=== PATIENT | female | born 1980 | race Hispanic/Latino ===

== ENCOUNTER → 2019-10-15 | Outpatient (CLI) | payer BC ==
[2019-10-15 08:49] LABS: BASOPHILS % 0.3 % (0.0-1.0); EOSINOPHILS # (AUTO) 0.1 (0.0-0.4); EOSINOPHILS % 1.9 % (0.0-6.0); HEMATOCRIT 37.7 % (34.2-44.1); HEMOGLOBIN 12.6 g/dL (12.0-16.0); LYMPHOCYTES # (AUTO) 2.2 (1.0-3.2); LYMPHOCYTES % 36.6 % (18.0-39.1); MEAN CORPUSCULAR HEMOGLOBIN 29.6 pg (28-32); MEAN CORPUSCULAR HGB CONC 33.4 g/dL (31-35); MEAN CORPUSCULAR VOLUME 88.7 fL (81-99); MONOCYTES # (AUTO) 0.3 (0.2-0.8); MONOCYTES % 4.9 % (4.4-11.3); NEUTROPHILS # (AUTO) 3.3 (2.1-6.9); PLATELET COUNT 260 x10e3/uL (140-360); RED BLOOD COUNT 4.25 x10e6/uL (3.6-5.1); RED CELL DISTRIBUTION WIDTH 12.5 % (11.7-14.4)
[2019-10-15 09:15] LABS: ALANINE AMINOTRANSFERASE 14 IU/L (0-55); ALBUMIN/GLOBULIN RATIO 1.2 (0.8-2.0); ANION GAP 12.9 mmol/L (8-16); BLOOD UREA NITROGEN 13 mg/dL (7-26); CALCIUM 9.1 mg/dL (8.4-10.2); CARBON DIOXIDE 23 mmol/L (22-29); CHLORIDE 108 mmol/L (98-107); GLUCOSE 103 mg/dL (74-118); POTASSIUM 3.9 mmol/L (3.5-5.1); SODIUM 140 mmol/L (136-145)
[2019-10-15 09:49] LABS: BUN/CREATININE RATIO 20 (6-25); EST GLOMERULAR FILTRATION RATE > 60 ML/MIN (60-)
[2019-10-15 10:04] LABS: THYROID STIMULATING HORMONE 0.663 uIU/mL (0.350-4.940)
[2019-10-15 10:15] LABS: ALKALINE PHOSPHATASE 42 IU/L (40-150)
--- NOTE | 2019-10-16 18:19 | Diagnostic Imaging Report ---
Thyroid Scan with Multiple Uptakes Reason for exam: Goiter, has had multiple thyroid nodule biopsies which have been negative for malignancy. Radiopharmaceutical: I-123 Armando 0.28 mCi PO Report: After oral administration of I-123 Armando, the 6-hour thyroid uptake of iodine is 12% (normal 4-14%) and the 24-hour uptake is 19% (normal 10-35%). Images of the thyroid was obtained in the anterior and anterior oblique projections. The thyroid appears normal in size to mildly enlarged. The thyroid lobes appear symmetric in size. There is homogeneous distribution of tracer activity throughout both lobes. No focal areas of increased or decreased tracer activity are identified within the thyroid lobes or isthmus. The thyroid is in a normal anatomic location. A pyramidal lobe is not seen. There is no aberrant functioning thyroid tissue seen in the area scanned. Impression: Normal thyroid uptake of iodine. Normal thyroid scan. Signed by: Dr. Dionne Tobin M.D. on 10/16/2019 6:16 PM
== END ==
LOC: NM 08:07
PROVIDERS: ATTEND Surgery
DX: E04.9 Nontoxic goiter, unspecified (principal)
CPT/HCPCS: 36415; 78014; 80053; 81025; 84443; 85025; A9516